=== PATIENT | male | born 1960 | race Caucasian/White ===

== ENCOUNTER → 2018-10-26 | Outpatient (CLI) | payer OTHER ==
--- NOTE | 2018-10-26 15:36 | KCIC ---
MRA Brain History: TIA, migraine headaches, delirium Technique: 3-D [id number] MR angiography was performed of the brain. Comparison: None Findings: Determination of any degree of stenosis is based on NASCET criteria. There is some motion degradation. Both vertebral arteries constitute the basilar artery, slightly dominant left vertebral artery. There is visualization of segments bilateral PICAs and right AICA, left AICA not seen. There is visualization of bilateral superior cerebellar arteries. There is shared origin of the right superior cerebellar artery and right P1 segment. No significant posterior communicating arteries are visualized on either side. No significant anterior communicating artery is visualized. There is visualization of the internal carotid arteries bilaterally at the skull base. There is tortuosity of the distal left cervical internal carotid artery. There is visualization of the anterior, middle, and posterior cerebral arteries bilaterally. No significant intracranial stenosis is identified. 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 Impression: 1. No significant intracranial stenosis or aneurysm is identified. 2. 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 Electronically signed by: Davy Christianson MD (10/26/2018 3:32 PM) [facility]
== END | disposition home or self-care (01) ==
LOC: KCIC MRI 14:13
PROVIDERS: ATTEND Internal Medicine
DX: H57.13 Ocular pain, bilateral (principal); G43.809 Other migraine, not intractable, without status migrainosus; Z86.73 Personal history of transient ischemic attack (TIA), and cerebral infarction without residual deficits; R41.0 Disorientation, unspecified
CPT/HCPCS: 70544